=== PATIENT | female | born 1995 | race Two or more races ===

== ENCOUNTER 2017-10-11 00:33 | Emergency (ER) | payer SELFPAY ==
[2017-10-11] MEDS ORDERED: NALOXONE HCL 0.4 MG/ML INJ ONE ×2 (00:39→00:42)
[2017-10-11] MEDS ORDERED: NALOXONE HCL 0.4 MG/ML INJ IVP ONE (00:45)
[2017-10-11] MEDS ORDERED: NS 1,000 ML IV ONE ×2 (00:45→03:04)
--- NOTE | 2017-10-11 00:53 | EDPHY ---
H & P - Personal History Tetanus Vaccine Date: <10 YEARS HPI/ROS: Chief Complaint: Altered mental status HPI: 22-year-old woman presenting with a loss of consciousness and subsequent Rolly unresponsive. Per family the patient has been her normal state of health. She was folding laundry when she lost consciousness. She then vomited once. On EMS arrival she was breathing on her own but was unresponsive to painful stimuli. They gave her intranasal Narcan without any changes. She has a history of arthritis and has taken tramadol and narcotics in the past. Does not have a history of depression. Has not been complaining of any thoughts of depression recently. She is with 2 children. Patient's mother states she gets along very well with her . There has not been any arguments that they are aware of. She has not had any falls or head injuries. Blood sugar by EMS was 95. Dated not describe or observe any seizure- like activity. She had no incontinence of stool or urine. Patient's family states that she does not drink alcohol or use other drugs. ROS: Unavailable secondary to patient being unresponsive PMH: Arthritis Social History: No smoking, no alcohol, no recreational drug use Family History: non-contributory Physical Exam: Gen: Unresponsive, breathing on her own and maintaining her airway. 100% oxygen saturations on a non-rebreather. HEENT: Nose: no rhinorrhea Eyes: Pupils are 4 mm and reactive Mouth: Moist mucosa patient initially had jaw clench but then relaxed it without any intervention. She has a positive gag and was actually pushing the tongue blade out of her mouth with her tongue. No oral trauma. Neck: Supple, no JVD Chest: nontender, lungs clear to auscultation Heart: S1, S2 normal, no murmur Abd: Soft, non-tender, no guarding Back: no CVA tenderness, no midline tenderness Ext: no edema, non-tender Skin: no rash Neuro: CN II-XII intact, patient is responding to noxious stimuli (Dariel Velasquez) Constitutional: Initial Vital Signs Temperature (C) 36.2 C 10/11/17 00:30 Heart Rate 101 H 10/11/17 00:30 Respiratory Rate 10 L 10/11/17 00:30 Blood Pressure 112/70 10/11/17 00:30 O2 Sat (%) 96 10/11/17 00:30 O2 Delivery Mode Room Air O2 (L/minute) 2 Allergies/Adverse Reactions: No Known Drug Allergies Allergy (Unknown, Verified 10/11/17 00:53) Unknown Avocados Allergy (Severe, Uncoded 10/11/17 00:53) Mouth Itching and Swelling Peanut Butter Allergy (Severe, Uncoded 10/11/17 00:53) Mouth Itching and Swelling Home Medications: Medication Instructions Recorded GABAPENTIN 10/11/17 Mirtazapine 10/11/17 Oxycodone HCl 10/11/17 PARoxetine HCL 10/11/17 traMADol 10/11/17 Medical Decision Making ED Course/Re-evaluation: 22-year-old woman presenting unresponsive. Patient actually is responding to painful stimuli here. She is satting 100% on 3 L nasal cannula. She is moving her extremities. No evidence of acute head trauma. She will get a CT scan and laboratory tests. CT scan of the head is negative per Dr. Delgado. Patient is not moving extremities more still is not answering questions. Family spot on her medications and she is on 2 antidepressants. Is also noted that her blood alcohol is 220. She is still maintaining her airway. Plan will be to allow her to metabolize and I am waiting her tox screen. 0235 patient is now awake and alert. She admits that she was drinking alcohol and taking some pills tonight. She is not able to tell me what pills she took. She denies intentional overdose. She states she does have a history of depression but she denies any suicidal ideation. 0500 patient is sleeping. She has not particularly arousable or answering questions at this time. 0700 patient is still sleeping. She has not been ambulating yet. Patient is signed out to Dr. Kaiser pending improvement in her mental status. (Dariel Velasquez) Other Provider: Patient signed out to me at 0700 pending re-evaluation. On re-eval at 9a, patient is awake and mental status is normal. She admits to mixing alcohol and pills last night, but states she didn't realize they would be so strong, and denies any attempt at self-harm or current SI. (Dillan Kaiser) - Data Points Laboratory Results: Laboratory Results 10/11/17 00:38 10/11/17 00:38 10/11/17 10/11/17 10/11/17 01:30 00:38 00:38 WBC RBC Hgb POC Hgb Hct POC Hct MCV MCH MCHC RDW Plt Count MPV Neut % (Auto) Lymph % (Auto) Jasper % (Auto) Eos % (Auto) Baso % (Auto) Nucleat RBC Rel Count Absolute Neuts (auto) Absolute Lymphs (auto) Absolute Monos (auto) Absolute Eos (auto) Absolute Basos (auto) Absolute Nucleated RBC Immature Gran % Immature Gran # PT INR APTT POC Sodium Sodium 145 mEq/L H mEq/L (134-144) POC Potassium Potassium 3.6 mEq/L mEq/L (3.5-5.2) POC Chloride Chloride 107 mEq/L mEq/L (97-110) Carbon Dioxide 18 mEq/l L mEq/l (22-31) Anion Gap 20 mEq/L H mEq/L (8-16) POC BUN BUN 7 mg/dL mg/dL (7-23) Creatinine 0.5 mg/dL L mg/dL (0.6-1.0) POC Creatinine Estimated GFR > 60 Glucose 86 mg/dL mg/dL (70-100) POC Glucose Calcium 9.3 mg/dL mg/dL (8.5-10.4) Beta HCG, Qual NEGATIVE Specimen Hemolysis 183 Urine Color PALE YELLOW Urine Appearance CLEAR Urine pH 6.0 (5.0-7.5) Ur Specific [place] 1.001 L (1.002-1.030) Urine Protein NEGATIVE (NEGATIVE) Urine Ketones NEGATIVE (NEGATIVE) Urine Blood 1+ H (NEGATIVE) Urine Nitrate NEGATIVE (NEGATIVE) Urine Bilirubin NEGATIVE (NEGATIVE) Urine Urobilinogen NEGATIVE EU EU (0.2-1.0) Ur Leukocyte Esterase NEGATIVE (NEGATIVE) Urine RBC 1-3 /hpf /hpf (0-3) Urine WBC NONE SEEN /hpf /hpf (0-3) Ur Epithelial Cells NONE SEEN /lpf /lpf (NONE-1+) Urine Glucose NEGATIVE (NEGATIVE) Urine Opiates Screen NEGATIVE (NEGATIVE) Urine Barbiturates NEGATIVE (NEGATIVE) Ur Phencyclidine Scrn NEGATIVE (NEGATIVE) Ur Amphetamine Screen NON-NEGATIVE H (NEGATIVE) U Benzodiazepines Scrn NON-NEGATIVE H (NEGATIVE) Urine Cocaine Screen NEGATIVE (NEGATIVE) U Marijuana (THC) Screen NEGATIVE (NEGATIVE) Ethyl Alcohol 220 mg/dL H mg/dL (0-10) 10/11/17 10/11/17 10/11/17 00:38 00:38 00:36 WBC 6.79 10^3/uL 10^3/uL (3.80-9.50) RBC 4.49 10^6/uL 10^6/uL (4.18-5.33) Hgb 14.4 g/dL g/dL (12.6-16.3) POC Hgb 14.6 gm/dL gm/dL (12.6-16.3) Hct 39.9 % % (38.0-47.0) POC Hct 43 % % (38-47) MCV 88.9 fL fL (81.5-99.8) MCH 32.1 pg pg (27.9-34.1) MCHC 36.1 g/dL g/dL (32.4-36.7) RDW 12.5 % % (11.5-15.2) Plt Count 283 10^3/uL 10^3/uL (150-400) MPV 9.1 fL fL (8.7-11.7) Neut % (Auto) 53.5 % % (39.3-74.2) Lymph % (Auto) 37.8 % % (15.0-45.0) Jasper % (Auto) 7.4 % % (4.5-13.0) Eos % (Auto) 0.6 % % (0.6-7.6) Baso % (Auto) 0.4 % % (0.3-1.7) Nucleat RBC Rel Count 0.0 % % (0.0-0.2) Absolute Neuts (auto) 3.63 10^3/uL 10^3/uL (1.70-6.50) Absolute Lymphs (auto) 2.57 10^3/uL 10^3/uL (1.00-3.00) Absolute Monos (auto) 0.50 10^3/uL 10^3/uL (0.30-0.80) Absolute Eos (auto) 0.04 10^3/uL 10^3/uL (0.03-0.40) Absolute Basos (auto) 0.03 10^3/uL 10^3/uL (0.02-0.10) Absolute Nucleated RBC 0.00 10^3/uL 10^3/uL (0-0.01) Immature Gran % 0.3 % % (0.0-1.1) Immature Gran # 0.02 10^3/uL 10^3/uL (0.00-0.10) PT 13.6 SEC SEC (12.0-15.0) INR 1.05 (0.83-1.16) APTT 30.0 SEC SEC (23.0-38.0) POC Sodium 142 mEq/L mEq/L (134-144) Sodium POC Potassium 3.4 mEq/L mEq/L (3.3-5.0) Potassium POC Chloride 107 mEq/L mEq/L (97-110) Chloride Carbon Dioxide Anion Gap POC BUN 6 mg/dL L mg/dL (7-23) BUN Creatinine POC Creatinine 0.8 mg/dL mg/dL (0.6-1.0) Estimated GFR Glucose POC Glucose 88 mg/dL mg/dL (70-100) Calcium Beta HCG, Qual Specimen Hemolysis Urine Color Urine Appearance Urine pH Ur Specific [place] Urine Protein Urine Ketones Urine Blood Urine Nitrate Urine Bilirubin Urine Urobilinogen Ur Leukocyte Esterase Urine RBC Urine WBC Ur Epithelial Cells Urine Glucose Urine Opiates Screen Urine Barbiturates Ur Phencyclidine Scrn Ur Amphetamine Screen U Benzodiazepines Scrn Urine Cocaine Screen U Marijuana (THC) Screen Ethyl Alcohol Medications Given: Discontinued Medications Sodium Chloride (Ns) 1,000 mls @ 0 mls/hr IV ONCE ONE PRN Reason: Wide Open Stop: 10/11/17 00:46 Last Admin: 10/11/17 00:45 Dose: 1,000 mls Sodium Chloride (Ns) 1,000 mls @ 0 mls/hr IV ONCE ONE PRN Reason: Wide Open Stop: 10/11/17 03:05 Last Admin: 10/11/17 03:05 Dose: 1,000 mls Naloxone HCl (Narcan) 2 mg IVP EDNOW ONE Stop: 10/11/17 00:46 Last Admin: 10/11/17 00:45 Dose: 2 mg Point of Care Test Results: 10/11/17 00:36 POC Sodium 142 POC Potassium 3.4 POC Chloride 107 POC BUN 6 L POC Creatinine 0.8 POC Glucose 88 Departure - Departure Disposition: Home, Routine, Self-Care Clinical Impression: Altered mental status, Alcohol intoxication, Benzodiazepine abuse Condition: Good Instructions: Abuse of Alcohol (ED) Additional Instructions: Follow-up with your primary doctor within 72 hours. Return to the Emergency Department for fever, chest pain, shortness of breath, increasing pain or other worsening of condition. Please get help for abuse of alcohol and pills. Referrals: Deanne Cohn MD [Primary Care Provider] - As per Instructions
[2017-10-11 01:01] LABS: % IMMATURE GRANULYOCYTES 0.3 % (0.0-1.1); ABSOLUTE IMMATURE GRANULOCYTES 0.02 10^3/uL (0.00-0.10); ADD DIFF? NO; ADD MORPH? NO; ADD SCAN? NO; ATYPICAL LYMPHOCYTE FLAG 60 (0-99); FRAGMENT RBC FLAG 0 (0-99); HEMATOCRIT 39.9 % (38.0-47.0); HEMOGLOBIN 14.4 g/dL (12.6-16.3); LEFT SHIFT FLG 0 (0-99); LIPEMIA HEMOLYSIS FLAG 90 (0-99); MEAN CELL HEMOGLOBIN 32.1 pg (27.9-34.1); MEAN CELL HEMOGLOBIN CONCENTR. 36.1 g/dL (32.4-36.7); MEAN CELL VOLUME 88.9 fL (81.5-99.8); MEAN PLATELET VOLUME 9.1 fL (8.7-11.7); PLATELET CLUMPS FLAG 0 (0-99); PLATELET COUNT 283 10^3/uL (150-400); RED BLOOD CELL COUNT 4.49 10^6/uL (4.18-5.33); RED CELL DISTRIBUTION WIDTH 12.5 % (11.5-15.2)
[2017-10-11 01:07] LABS: INR 1.05 (0.83-1.16); PROTIME(PATIENT) 13.6 SEC (12.0-15.0)
[2017-10-11 01:09] LABS: ANION GAP 20 mEq/L (8-16); CALCIUM 9.3 mg/dL (8.5-10.4); CARBON DIOXIDE 18 mEq/l (22-31); CHLORIDE 107 mEq/L (97-110); CREATININE 0.5 mg/dL (0.6-1.0); ETHANOL SERUM 220 mg/dL (0-10); GLOMERULAR FILTRATION RATE > 60; GLUCOSE 86 mg/dL (70-100); POTASSIUM 3.6 mEq/L (3.5-5.2); SODIUM 145 mEq/L (134-144); SPECIMEN HEMOLYSIS 183
[2017-10-11 01:43] LABS: COLOR PALE YELLOW; LEUKOCYTE ESTERASE,URINE NEGATIVE (NEGATIVE); NITRITE,URINE NEGATIVE (NEGATIVE)
[2017-10-11 01:55] LABS: WBC,URINE NONE SEEN /hpf (0-3)
[2017-10-11 06:26] VITALS: RESP 16
[2017-10-11 09:13] VITALS: BP 105/64; PULSE 98; TEMP 98.4; O2SAT 96
--- NOTE | 2017-10-11 11:10 | CPEKG ---
Heart Rate: 102 RR Interval: 588 P-R Interval: 176 QRSD Interval: 92 QT Interval: 344 QTC Interval: 449 P Underwood: 49 QRS Underwood: 78 T Wave Underwood: 41 EKG Severity - ABNORMAL ECG - EKG Impression: SINUS TACHYCARDIA EKG Impression: LEFT ATRIAL ABNORMALITY Electronically Signed By: Brian Lazar 12-Oct-2017 08:10:55
== END 2017-10-11 09:10 | disposition home or self-care (01) ==
LOC: EDUNIT#
PROC: 0T9B70Z Drainage of Bladder with Drainage Device, Via Natural or Artificial Opening (ICD-10-PCS; principal; 2017-10-11)
DX: R41.82 Altered mental status, unspecified (principal); F10.129 Alcohol abuse with intoxication, unspecified; F13.10 Sedative, hypnotic or anxiolytic abuse, uncomplicated; Z91.010 Allergy to peanuts
CPT/HCPCS: 80305; 82947-QW; 96374; G0480; J2310